=== PATIENT | male | born 1965 | race Asian ===

== ENCOUNTER → 2024-10-07 | Day surgery (SDC) | payer MEDICAID ==
[~2024-10-07] VITALS: Ht 167.6 cm; Wt 79.4 kg
[~2024-10-07] MED LIST: ACETAMINOPHEN 1000MG/100ML 100 ML IV ONE; ACETAMINOPHEN WITH CODEINE 300/30MG TABLET PO NR; ATOR20TA PO; AZOPT EACHEYE; BIMA2.5D4 EACHEYE; BUPIVACAINE HCL/PF 0.5% (5MG/ML) 10ML ONE; CEFAZOLIN SODIUM 1000MG/VIAL ONE; DEXAMETHASONE 4MG/ML 1ML VIAL ONE; FAMO40TA7 PO; FENTANYL CITRATE/PF 50MCG/ML 2ML VIAL IV PRN; FENTANYL CITRATE/PF 50MCG/ML 2ML VIAL ONE; LEVO88TA7 PO; LOSA50TA41 PO; ONDANSETRON HCL 4MG/2ML INJ IV PRN; ONDANSETRON HCL 4MG/2ML INJ ONE; PANT40TA51 PO; PROPOFOL 200MG/20ML VIAL IV ONE; ROCURONIUM BROMIDE 10MG/ML VIAL 5ML IV ONE; SKIN ADHESIVE 0.7 GM EA TOP ONE; SUGAMMADEX SODIUM 200MG/2ML VIAL IV ONE
[2024-10-07] MEDS: SODIUM CHLORIDE 0.9% 1,000 ML IV SCH (08:27)
[2024-10-07 14:08] VITALS: BP 131/74; PULSE 73; RESP 20
[2024-10-07] MEDS: HYDROMORPHONE HCL/PF 1MG/ML INJ IV PRN (14:08)
== END | disposition home or self-care (01) ==
LOC: OR 07:26
PROVIDERS: ATTEND Surgery
DX: K80.10 Calculus of gallbladder with chronic cholecystitis without obstruction (principal); I10 Essential (primary) hypertension; K21.9 Gastro-esophageal reflux disease without esophagitis; E78.00 Pure hypercholesterolemia, unspecified; Z87.891 Personal history of nicotine dependence; Z79.899 Other long term (current) drug therapy; Z98.890 Other specified postprocedural states
CPT/HCPCS: 47562; 82962; 88304; J3010; J0665; J0690; J1100; J2405; J2704; J3490; J1171; J7120; J0131